=== PATIENT | male | born 1995 | race Two or more races ===

== ENCOUNTER 2021-05-26 18:43 | Emergency (ER) | payer OTHER ==
[2021-05-26 19:14] VITALS: BP 130/78; PULSE 80; TEMP 98.2; BMI 24.0
[2021-05-31 16:07] LABS: SARS-CoV-2 NAA Detected (Not Detected)
== END 2021-05-26 21:00 | disposition home or self-care (01) ==
LOC: JER 18:43
DX: R53.81 Other malaise (principal)
CPT/HCPCS: 99283-25; C9803-CS; U0003; U0005